=== PATIENT | female | born 1955 | race American Indian/Alaskan Native ===

== ENCOUNTER 2020-04-27 07:58 | Inpatient (IN) | payer BC, OTHER ==
[~2020-04-27] VITALS: Ht 160 cm; Wt 75.9 kg
[~2020-04-27 07:58] MED LIST: CHOL10002 PO; IBUP-1984 PO; LEVO75TA7; LORA10TA65 PO; RIZA10TA27 PO; SUMA100T PO; TOPI25TA15 PO; ZOLM5TAB9 PO
[2020-04-27] MEDS ORDERED: HYDROcodone/acetaminophen 10/325mg tab PO STA (08:19)
--- NOTE | 2020-04-27 11:14 | NUR ---
called dr. Dumont for
[2020-04-27] MEDS ORDERED: diphenhydrAMINE 25mg capsule PO PRN (11:20)
[2020-04-27] MEDS ORDERED: acetaminophen 325mg tablet PO PRN ×2 (11:20)
[2020-04-27] MEDS ORDERED: magnesium hydroxide 30ml (MOM) UD suspension PO PRN (11:20)
[2020-04-27] MEDS ORDERED: ondansetron/PF 4mg/2ml inj IV PRN (11:20)
[2020-04-27] MEDS ORDERED: mag hydrox/Alum hydrox/simeth 30ml oral suspension PO PRN (11:20)
[2020-04-27] MEDS ORDERED: HYDROcodone/acetaminophen 5mg/325mg tablet PO PRN (11:20)
[2020-04-27] MEDS ORDERED: magnesium 2GM in 50ml NS 50 ML IV PRN (11:20)
[2020-04-27] MEDS ORDERED: bisacodyl 10mg suppository rectal RC PRN (11:20)
[2020-04-27] MEDS ORDERED: potassium CL 10mEq/100ml bag 100 ML IV PRN ×2 (11:20)
[2020-04-27] MEDS ORDERED: potassium Cl 20 mEq SR tablet PO PRN ×2 (11:20)
[2020-04-27] MEDS ORDERED: magnesium 4gm in 100ml NS 100 ML IV PRN (11:20)
[2020-04-27] MEDS ORDERED: acetaminophen 650mg rectal suppository RC PRN (11:20)
[2020-04-27] MEDS ORDERED: morphine 2 MG/ML inj. syringe IV PRN ×2 (11:20)
[2020-04-27] MEDS ORDERED: magnesium Cl slow-release 64mg tablet PO PRN (11:20)
[2020-04-27 11:34] LABS: BASOPHILS # (AUTO) 0.1 X10'3 (0-0.2); BASOPHILS % (AUTO) 0.9 % (0-1); EOSINOPHILS # (AUTO) 0.3 X10'3 (0-0.9); EOSINOPHILS % (AUTO) 3.8 % (0-6); HEMATOCRIT 45.9 % (35.0-45.0); HEMOGLOBIN 15.2 g/dl (12.0-16.0); LYMPHOCYTES # (AUTO) 1.5 X10'3 (1.1-4.8); LYMPHOCYTES % (AUTO) 22.4 % (21-51); MEAN CORPUSCULAR HEMOGLOBIN 30.2 PG (27.0-31.0); MEAN CORPUSCULAR HGB CONC 33.2 g/dL (33.0-36.5); MEAN CORPUSCULAR VOLUME 90.8 FL (78-98); MEAN PLATELET VOLUME 8.8 FL (7.4-10.4); MONOCYTES # (AUTO) 0.4 X10'3 (0-0.9); MONOCYTES % (AUTO) 6.6 % (2-12); NEUTROPHILS # (AUTO) 4.3 X10'3 (1.8-7.7); NEUTROPHILS % (AUTO) 66.3 % (42-75); PLATELET COUNT 215 X10'3 (140-440); RED BLOOD COUNT 5.05 X10'6 (4.20-5.60); RED CELL DISTRIBUTION WIDTH 13.8 % (11.5-14.5); WHITE BLOOD COUNT 6.5 X10'3 (4.5-11.0)
[2020-04-27 11:49] LABS: ALANINE AMINOTRANSFERASE 21 U/L (12-78); ALBUMIN 3.8 G/DL (3.4-5.0); ALBUMIN/GLOBULIN RATIO 1.1 (1.1-1.5); ALKALINE PHOSPHATASE 80 IU/L (46-116); ANION GAP 9 (8-16); ASPARTATE AMINO TRANSFERASE 18 U/L (10-37); BILIRUBIN,TOTAL 0.5 MG/DL (0.1-1.0); BLOOD UREA NITROGEN 15 MG/DL (7-18); CALCIUM 8.8 MG/DL (8.5-10.1); CHLORIDE 110 MMOL/L (99-107); CREATININE 0.88 MG/DL (0.40-0.90); GLUCOSE 86 MG/DL (70-104); POTASSIUM 4.1 MMOL/L (3.5-5.1); SODIUM 141 MMOL/L (135-145); TOTAL CARBON DIOXIDE 22.5 MMOL/L (24-32); TOTAL PROTEIN 7.2 G/DL (6.4-8.2); eGFR 65 ML/MIN
[2020-04-27] MEDS: normal saline 1000ml 1,000 ML IV SCH ×2 (11:56→19:07)
[2020-04-27 12:18] LABS: HEMOGLOBIN A1C 5.7 % (4.5-6.2)
--- NOTE | 2020-04-27 12:38 | NUR ---
PT C/O LFT ANKLE PAIN 7/10,MEDICATED BEFORE TRANSFERING PT UPSTAIR.
[2020-04-27] MEDS: HYDROcodone/acetaminophen 10/325mg tab PO PRN ×3 (12:40→23:12)
[2020-04-27] MEDS ORDERED: ZOLM5SPR5 NAS (12:41)
[2020-04-27] MEDS ORDERED: CYAN-51 PO (12:41)
[2020-04-27] MEDS ORDERED: LEVO125T8 PO (12:41)
[2020-04-27] MEDS ORDERED: CHOL500050 PO (12:41)
[2020-04-27] MEDS ORDERED: TOPI25TA49 PO (12:41)
[2020-04-27] MEDS ORDERED: LORA10TA7 PO (12:41)
[2020-04-27] MEDS ORDERED: IBUP-1985 PO (12:41)
[2020-04-27 12:50] VITALS: BP 114/67
[2020-04-27 12:52] LABS: PARTIAL THROMBOPLASTIN TIME 28 SECONDS (22-32)
--- NOTE | 2020-04-27 19:00 | NUR ---
Problems reprioritized. Patient report given, questions answered & plan of care reviewed with Rafaela MCCOLLUM.
[2020-04-27] MEDS: heparin, porcine 5000 units/ml vial SQ SCH (19:06)
[2020-04-27] MEDS: K and/or MAG REPLACEMENT MC SCH (19:10)
[2020-04-27] MEDS ORDERED: temazepam 15mg capsule PO PRN (21:00)
[2020-04-27 22:00] VITALS: BP 109/60
[2020-04-27] MEDS ORDERED: ringers solution, lacted 1,000 ML IV ONE (23:07)
[2020-04-28] VITALS (17 sets, daily range): BP systolic 96–135; BP diastolic 57–83
[2020-04-28] MEDS: HYDROcodone/acetaminophen 10/325mg tab PO PRN ×2 (03:18→08:29)
[2020-04-28] MEDS ORDERED: famotidine 20mg tablet PO ONE (06:00)
--- NOTE | 2020-04-28 06:20 | NUR ---
REPORT GIVEN TO VEDA SAEZ.
[2020-04-28 06:58] LABS: BASOPHILS # (AUTO) 0.1 X10'3 (0-0.2); BASOPHILS % (AUTO) 1.1 % (0-1); EOSINOPHILS # (AUTO) 0.4 X10'3 (0-0.9); HEMATOCRIT 42.7 % (35.0-45.0); LYMPHOCYTES # (AUTO) 1.8 X10'3 (1.1-4.8); MEAN CORPUSCULAR HEMOGLOBIN 30.1 PG (27.0-31.0); MEAN CORPUSCULAR HGB CONC 32.8 g/dL (33.0-36.5); MEAN CORPUSCULAR VOLUME 91.6 FL (78-98); MEAN PLATELET VOLUME 8.7 FL (7.4-10.4); MONOCYTES # (AUTO) 0.4 X10'3 (0-0.9); MONOCYTES % (AUTO) 8.2 % (2-12); NEUTROPHILS # (AUTO) 2.6 X10'3 (1.8-7.7); NEUTROPHILS % (AUTO) 48.7 % (42-75); PLATELET COUNT 192 X10'3 (140-440); RED BLOOD COUNT 4.66 X10'6 (4.20-5.60); RED CELL DISTRIBUTION WIDTH 14.3 % (11.5-14.5); WHITE BLOOD COUNT 5.3 X10'3 (4.5-11.0)
[2020-04-28 07:09] LABS: ALANINE AMINOTRANSFERASE 18 U/L (12-78); ALBUMIN 3.2 G/DL (3.4-5.0); ALBUMIN/GLOBULIN RATIO 1.1 (1.1-1.5); ALKALINE PHOSPHATASE 68 IU/L (46-116); ANION GAP 6 (8-16); ASPARTATE AMINO TRANSFERASE 13 U/L (10-37); BILIRUBIN,TOTAL 0.4 MG/DL (0.1-1.0); BLOOD UREA NITROGEN 14 MG/DL (7-18); BUN/CREATININE RATIO 18.7 (6.6-38.0); CALCIUM 8.2 MG/DL (8.5-10.1); CHLORIDE 111 MMOL/L (99-107); CHOL/HDL RATIO 3.1 (0.00-4.99); CHOLESTEROL 187 MG/DL (0-200); CREATININE 0.75 MG/DL (0.40-0.90); GLUCOSE 87 MG/DL (70-104); HDL CHOLESTEROL 61 MG/DL (35-60); LDL CHOLESTEROL 106 MG/DL (50-100); MAGNESIUM 1.9 MG/DL (1.5-2.4); PHOSPHORUS 3.6 MG/DL (2.3-4.5); POTASSIUM 4.1 MMOL/L (3.5-5.1); SODIUM 142 MMOL/L (135-145); TOTAL CARBON DIOXIDE 24.7 MMOL/L (24-32); TOTAL PROTEIN 6.2 G/DL (6.4-8.2); TRIGLYCERIDES 99 MG/DL (20-135); eGFR 78 ML/MIN
[2020-04-28] MEDS: K and/or MAG REPLACEMENT MC SCH ×2 (08:00→20:00)
[2020-04-28] MEDS: heparin, porcine 5000 units/ml vial SQ SCH ×2 (08:00→23:22)
[2020-04-28] MEDS ORDERED: loratadine 10mg tablet PO PRN (09:20)
[2020-04-28] MEDS ORDERED: ZOLMITRIPTAN NAS PRN (09:20)
[2020-04-28] MEDS: cyanocobalamin 500mcg tablet PO SCH (09:25)
[2020-04-28] MEDS: vitamin D (cholecalciferol) 1,000 unit tablet PO SCH (09:28)
[2020-04-28] MEDS ORDERED: SUMAtriptan 25 MG tablet PO PRN (09:35)
[2020-04-28] MEDS: topiramate 25mg tablet PO SCH (10:06)
[2020-04-28] MEDS: levoTHYROXINE 125mcg tablet PO SCH (10:06)
--- NOTE | 2020-04-28 10:45 | NUR ---
FOOD SERVICE HELPER, PICC NURSE AND OR IN ROOM FOR PATIENT. AFTER TESTS COMPETED PATIENT TO OR VIA BED.
[2020-04-28] MEDS ORDERED: cloNIDine hcl/PF 100mcg/ml inj ONE (11:38)
[2020-04-28] MEDS ORDERED: midazolam 2 mg/2 ml injection ONE (11:40)
[2020-04-28] MEDS ORDERED: fentaNYL/PF 50MCG/1 ML 2ML syringe ONE (11:40)
[2020-04-28] MEDS ORDERED: vancomycin 1,000mg inj ONE (12:00)
[2020-04-28] MEDS ORDERED: ceFAZolin 1000mg inj ONE ×2 (12:00)
[2020-04-28] MEDS ORDERED: dexamethasone sod phosphate 4mg/ml inj. ONE ×2 (12:01→12:19)
[2020-04-28] MEDS ORDERED: ePHEDrine 50MG/ML INJ. ONE (12:01)
[2020-04-28] MEDS ORDERED: propofol inj 20 ML IV ONE (12:01)
[2020-04-28] MEDS ORDERED: LIDOcaine 2% (20mg/ml) 5ml vial ONE (12:01)
[2020-04-28] MEDS ORDERED: ROPIVAcaine 0.5% (5mg/ml) 30ml vial ONE (12:01)
[2020-04-28] MEDS ORDERED: 0.9 % SODIUM CHLORIDE 10 ML VIAL ONE (12:01)
[2020-04-28] MEDS ORDERED: ondansetron/PF 4mg/2ml inj ONE (12:19)
[2020-04-28] MEDS ORDERED: ringers solution, lacted 1,000 ML IV SCH (12:21)
[2020-04-28] MEDS ORDERED: proCHLORperazine 10 MG/2 ml inj IV PRN (12:25)
[2020-04-28] MEDS ORDERED: ondansetron/PF 4mg/2ml inj IV PRN (12:25)
[2020-04-28] MEDS ORDERED: morphine 2 MG/ML inj. syringe IV PRN (12:25)
[2020-04-28] MEDS ORDERED: acetaminophen 1,000mg/100ml IV 100 ML IV PRN (12:25)
[2020-04-28] MEDS ORDERED: ketorolac trometh. 30mg/ml inj. IV ONE (12:25)
[2020-04-28] MEDS ORDERED: meperidine/PF 25mg/ml syringe IV PRN ×3 (12:25)
[2020-04-28] MEDS ORDERED: morphine 4 MG/ML inj SYRINge IV PRN (12:25)
--- NOTE | 2020-04-28 13:15 | NUR ---
Received from OR via , accompanied by Anesthesiologist DR AVILES and report given by Anesthesiolgist. AWAKENS TO VOICE. VITALS STABLE. DRESSING DI. YONNY PAIN. TOES WARM AND PINK.
--- NOTE | 2020-04-28 13:55 | NUR ---
Report called to receiving nurse. Transferred via BED Belongings . Special Issues communicated to receiving nurse. AWAKE AND ORIENTED. VITALS STABLE. DRESSING DI. YONNY PAIN. TO ORTHO RM [id number] AT THIS TIME.
[2020-04-28] MEDS: normal saline 1000ml 1,000 ML IV SCH ×2 (18:19→18:56)
[2020-04-28] MEDS ORDERED: ceFAZolin 1GM/D5W- ADD-VANTAGE 50 ML IV ONE (18:30)
--- NOTE | 2020-04-28 18:37 | NUR ---
Problems reprioritized. Patient report given, questions answered & plan of care reviewed with LEEORY MCCOLLUM.
[2020-04-28] MEDS ORDERED: topiramate 25mg tablet PO SCH (21:00)
[2020-04-29 02:00] VITALS: BP 103/51
[2020-04-29] MEDS: HYDROcodone/acetaminophen 10/325mg tab PO PRN ×4 (02:00→17:57)
[2020-04-29] MEDS: normal saline 1000ml 1,000 ML IV SCH ×2 (04:12→13:19)
[2020-04-29 06:00] VITALS: BP 99/47
[2020-04-29 06:32] LABS: BASOPHILS % (AUTO) 0.1 % (0-1); EOSINOPHILS % (AUTO) 0 % (0-6); HEMATOCRIT 39.7 % (35.0-45.0); HEMOGLOBIN 13.4 g/dl (12.0-16.0); LYMPHOCYTES # (AUTO) 0.8 X10'3 (1.1-4.8); LYMPHOCYTES % (AUTO) 8.8 % (21-51); MEAN CORPUSCULAR HEMOGLOBIN 30.6 PG (27.0-31.0); MEAN CORPUSCULAR HGB CONC 33.7 g/dL (33.0-36.5); MEAN CORPUSCULAR VOLUME 90.8 FL (78-98); MEAN PLATELET VOLUME 8.8 FL (7.4-10.4); MONOCYTES # (AUTO) 0.5 X10'3 (0-0.9); NEUTROPHILS # (AUTO) 7.5 X10'3 (1.8-7.7); NEUTROPHILS % (AUTO) 85.1 % (42-75); PLATELET COUNT 211 X10'3 (140-440); RED BLOOD COUNT 4.37 X10'6 (4.20-5.60); RED CELL DISTRIBUTION WIDTH 13.9 % (11.5-14.5); WHITE BLOOD COUNT 8.8 X10'3 (4.5-11.0)
[2020-04-29 07:11] LABS: ALANINE AMINOTRANSFERASE 15 U/L (12-78); ALKALINE PHOSPHATASE 64 IU/L (46-116); ANION GAP 9 (8-16); ASPARTATE AMINO TRANSFERASE 13 U/L (10-37); BILIRUBIN,TOTAL 0.4 MG/DL (0.1-1.0); BLOOD UREA NITROGEN 10 MG/DL (7-18); BUN/CREATININE RATIO 15.4 (6.6-38.0); CALCIUM 8.3 MG/DL (8.5-10.1); CHLORIDE 111 MMOL/L (99-107); CREATININE 0.65 MG/DL (0.40-0.90); GLUCOSE 122 MG/DL (70-104); MAGNESIUM 1.9 MG/DL (1.5-2.4); PHOSPHORUS 2.9 MG/DL (2.3-4.5); POTASSIUM 3.8 MMOL/L (3.5-5.1); SODIUM 141 MMOL/L (135-145); TOTAL CARBON DIOXIDE 21.2 MMOL/L (24-32); TOTAL PROTEIN 6.1 G/DL (6.4-8.2); eGFR > 90 ML/MIN
[2020-04-29] MEDS: K and/or MAG REPLACEMENT MC SCH (08:00)
[2020-04-29] MEDS: vitamin D (cholecalciferol) 1,000 unit tablet PO SCH (08:03)
[2020-04-29] MEDS: levoTHYROXINE 125mcg tablet PO SCH (08:04)
[2020-04-29] MEDS: topiramate 25mg tablet PO SCH (08:04)
[2020-04-29] MEDS: cyanocobalamin 500mcg tablet PO SCH (08:04)
[2020-04-29] MEDS: heparin, porcine 5000 units/ml vial SQ SCH (08:05)
[2020-04-29] MEDS ORDERED: HYDR-4383 PO (10:37)
[2020-04-29] MEDS ORDERED: ASPI-1264 PO (10:39)
[2020-04-29 18:00] VITALS: BP 114/58
--- NOTE | 2020-04-29 18:27 | NUR ---
Spoke to pharmacist at length regarding [facility] rx. [facility] sent rx to [facility] but pt unable to fill at this time due to pharmacy being closed before time of DC. Pt will have paper rx in hand
--- NOTE | 2020-04-29 19:05 | NUR ---
went over dc orders, medications, gave triplicate for [facility] to take to [facility]. Removed PIV. patient will be taken to lobby via wc to transfer to PO. Daughter to pick her up
== END 2020-04-29 19:10 | disposition home or self-care (01) | DRG 494 ==
LOC: ER 07:58 → ED HOLD 11:19 → EDBEDREQ 12:17 → ORTHO 4S 12:50
PROVIDERS: ADMIT Family Medicine; ATTEND Family Medicine
PROC: 0QSK04Z Reposition Left Fibula with Internal Fixation Device, Open Approach (ICD-10-PCS; principal; 2020-04-28 11:39)
DX: S82.62XA Displaced fracture of lateral malleolus of left fibula, initial encounter for closed fracture (principal); E03.9 Hypothyroidism, unspecified; W18.39XA Other fall on same level, initial encounter; G43.909 Migraine, unspecified, not intractable, without status migrainosus; X50.1XXA Overexertion from prolonged static or awkward postures, initial encounter; Y93.89 Activity, other specified; Y92.89 Other specified places as the place of occurrence of the external cause; Y99.8 Other external cause status; Z90.711 Acquired absence of uterus with remaining cervical stump; Z83.3 Family history of diabetes mellitus; Z87.891 Personal history of nicotine dependence; Z82.49 Family history of ischemic heart disease and other diseases of the circulatory system; Z79.890 Hormone replacement therapy
CPT/HCPCS: 99285; Z7506; Z7508; 36415; 71045; 73610; 76937; 80053; 80061; 83036; 83735; 84100; 84443; 85025; 85610; 85730; 86885; 86900; 86901; 87081; 93005; 97116; 97161; 97530; A4215; A4618; A6449; A7000; C1713; G0378; J0690; J0735; J1100; J1644; J2001; J2250; J2270; J2405; J2704; J2795; J3010; J3370; J7030; J7120